=== PATIENT | male | born 1990 | race Asian ===

== ENCOUNTER 2018-02-18 21:48 | Emergency (ER) | payer MEDICAID ==
[~2018-02-18] VITALS: Ht 167.6 cm; Wt 164.0 kg
[2018-02-18 21:55] VITALS: BP 141/90
== END 2018-02-18 23:22 | disposition left against medical advice (07) ==
LOC: ER 21:49
DX: R07.89 Other chest pain (principal); Z53.21 Procedure and treatment not carried out due to patient leaving prior to being seen by health care provider

== ENCOUNTER 2018-03-07 10:16 | Inpatient (IN) | payer MEDICAID ==
[~2018-03-07] VITALS: Ht 172.7 cm; Wt 86.9 kg
[2018-03-07 10:44] LABS: BASOPHILS % (AUTO) 0.3 % (0-1); EOSINOPHILS # (AUTO) 0.1 X10'3 (0-0.9); EOSINOPHILS % (AUTO) 1.6 % (0-6); HEMATOCRIT 48.4 % (42.0-52.0); HEMOGLOBIN 16.5 g/dl (14.0-17.9); LYMPHOCYTES # (AUTO) 3.7 X10'3 (1.1-4.8); MEAN CORPUSCULAR HEMOGLOBIN 29.2 PG (27.0-31.0); MONOCYTES # (AUTO) 0.5 X10'3 (0-0.9); MONOCYTES % (AUTO) 5.9 % (2-12); NEUTROPHILS # (AUTO) 4.5 X10'3 (1.8-7.7); NEUTROPHILS % (AUTO) 50.2 % (42-75); PLATELET COUNT 288 X10'3 (140-440); RED BLOOD COUNT 5.63 X10'6 (4.70-6.10); RED CELL DISTRIBUTION WIDTH 13.1 % (11.5-14.5); WHITE BLOOD COUNT 8.9 X10'3 (4.5-11.0)
[2018-03-07 11:05] LABS: ALANINE AMINOTRANSFERASE 140 U/L (12-78); ALBUMIN 4.7 G/DL (3.4-5.0); ALBUMIN/GLOBULIN RATIO 1.2 (1.1-1.5); ALKALINE PHOSPHATASE 60 IU/L (46-116); ANION GAP 18 (8-16); ASPARTATE AMINO TRANSFERASE 43 U/L (10-37); BILIRUBIN,TOTAL 0.7 MG/DL (0.1-1.0); BLOOD UREA NITROGEN 11 MG/DL (7-18); BUN/CREATININE RATIO 12.8 (5.4-32.0); CALCIUM 9.7 MG/DL (8.5-10.1); CHLORIDE 101 MMOL/L (99-107); CREATININE 0.86 MG/DL (0.60-1.10); GLUCOSE 133 MG/DL (70-104); SODIUM 139 MMOL/L (135-145); TOTAL PROTEIN 8.6 G/DL (6.4-8.2); eGFR > 90 ML/MIN
[2018-03-07 11:10] LABS: PARTIAL THROMBOPLASTIN TIME 27 SECONDS (22-32); POTASSIUM 2.8 MMOL/L (3.5-5.1); PROTHROMBIN TIME 10.1 SECONDS (9.0-12.0)
[2018-03-07] MEDS ORDERED: LORazepam 2 mg/ml vial IV ONE (11:10)
[2018-03-07] MEDS ORDERED: normal saline 1000ML IV soln IVB ONE (11:10)
[2018-03-07] MEDS ORDERED: ondansetron/PF 4mg/2ml inj IV ONE (11:15)
[2018-03-07] MEDS ORDERED: potassium Cl 20 mEq SR tablet PO ONE (11:15)
[2018-03-07] MEDS: potassium 10mEq/100ml NS w/LIDOcaine (10mg/bag) IV SCH ×2 (11:44→12:48)
[2018-03-07] MEDS ORDERED: aspirin 81mg tab.chew PO ONE (11:50)
[2018-03-07 13:35] LABS: URINE AMPHETAMINE SCREEN NEGATIVE (Neg); URINE BARBITUATE SCREEN NEGATIVE (Neg); URINE BENZODIAZEPINES SCREEN NEGATIVE (Neg); URINE CANNABINOID SCREEN NEGATIVE (Neg); URINE COCAINE SCREEN NEGATIVE (Neg); URINE METHADONE SCREEN NEGATIVE (Neg); URINE OPIATE SCREEN NEGATIVE (Neg); URINE PHENCYCLIDINE SCREEN NEGATIVE (Neg)
[2018-03-07 14:36] LABS: POTASSIUM 4.2 MMOL/L (3.5-5.1)
[2018-03-07] MEDS ORDERED: NO HOME MEDS (15:16)
[2018-03-07] MEDS ORDERED: FISH12002 PO (15:50)
[2018-03-07 16:01] LABS: D-DIMER < 0.19 MG/L FEU (0-0.50)
[2018-03-07] MEDS ORDERED: nitroGLYCERIN 0.4mg SUBLingual tab SL PRN (16:30)
[2018-03-07] MEDS ORDERED: aminophylline 250mg/10ml inj. IV PRN (16:30)
[2018-03-07] MEDS ORDERED: acetaminophen 325mg tablet PO PRN ×2 (16:30)
[2018-03-07] MEDS ORDERED: ondansetron/PF 4mg/2ml inj IV PRN (16:30)
[2018-03-07] MEDS ORDERED: magnesium 1gm/100ml D5W IVPB 100 ML IV PRN (16:30)
[2018-03-07] MEDS ORDERED: HYDROcodone/acetaminophen 5mg/325mg tablet PO PRN (16:30)
[2018-03-07] MEDS ORDERED: metoprolol tartrate 1mg/ml inj IV PRN (16:30)
[2018-03-07] MEDS ORDERED: regadenoson 0.4mg/5ml syringe IV ONE (16:30)
[2018-03-07] MEDS ORDERED: diphenhydrAMINE 25mg capsule PO PRN (16:30)
[2018-03-07] MEDS ORDERED: magnesium Cl slow-release 64mg tablet PO PRN (16:30)
[2018-03-07] MEDS ORDERED: mag hydrox/Alum hydrox/simeth 30ml oral suspension PO PRN (16:30)
[2018-03-07] MEDS ORDERED: magnesium 4gm in 100ml NS 100 ML IV PRN (16:30)
[2018-03-07] MEDS ORDERED: magnesium hydroxide 30ml (MOM) UD suspension PO PRN (16:30)
[2018-03-07] MEDS ORDERED: potassium Cl 40MEQ/NS 500ml 500 ML IV PRN ×2 (16:30)
[2018-03-07] MEDS ORDERED: potassium Cl 20 mEq SR tablet PO PRN ×2 (16:30)
[2018-03-07] MEDS ORDERED: morphine 2 MG/ML inj. syringe IV PRN (16:30)
[2018-03-07] MEDS: normal saline 1000ml 1,000 ML IV SCH (17:01)
[2018-03-07] MEDS: enoxaparin 40mg/0.4ml syringe SUBCUT SCH (17:03)
[2018-03-07] MEDS ORDERED: iohexol 350MG/ML 100ml bottle IV ONE (17:05)
[2018-03-07 17:08] LABS: HEMOGLOBIN A1C 5.6 % (4.5-6.2)
[2018-03-07 18:53] LABS: MAGNESIUM 2.1 MG/DL (1.5-2.4)
[2018-03-07] MEDS: K and/or MAG REPLACEMENT MC SCH (20:10)
[2018-03-07 20:15] VITALS: BP 128/80
[2018-03-07] MEDS ORDERED: temazepam 15mg capsule PO PRN (21:00)
[2018-03-07 23:00] VITALS: BP 113/69
[2018-03-08] VITALS (12 sets, daily range): BP systolic 79–137; BP diastolic 34–88
[2018-03-08] MEDS: normal saline 1000ml 1,000 ML IV SCH ×2 (02:30→12:30)
[2018-03-08 05:35] LABS: BASOPHILS % (AUTO) 0.4 % (0-1); EOSINOPHILS # (AUTO) 0.2 X10'3 (0-0.9); HEMATOCRIT 42.2 % (42.0-52.0); HEMOGLOBIN 14.4 g/dl (14.0-17.9); LYMPHOCYTES # (AUTO) 2.9 X10'3 (1.1-4.8); LYMPHOCYTES % (AUTO) 37.1 % (21-51); MEAN CORPUSCULAR HEMOGLOBIN 29.1 PG (27.0-31.0); MEAN CORPUSCULAR HGB CONC 34.2 % (33.0-36.5); MEAN CORPUSCULAR VOLUME 85.1 FL (78-98); MEAN PLATELET VOLUME 8.2 FL (7.4-10.4); MONOCYTES # (AUTO) 0.5 X10'3 (0-0.9); NEUTROPHILS # (AUTO) 4.2 X10'3 (1.8-7.7); NEUTROPHILS % (AUTO) 53.5 % (42-75); PLATELET COUNT 229 X10'3 (140-440); RED BLOOD COUNT 4.96 X10'6 (4.70-6.10); RED CELL DISTRIBUTION WIDTH 13.3 % (11.5-14.5); WHITE BLOOD COUNT 7.9 X10'3 (4.5-11.0)
[2018-03-08 05:54] LABS: ALANINE AMINOTRANSFERASE 113 U/L (12-78); ALBUMIN 3.6 G/DL (3.4-5.0); ALBUMIN/GLOBULIN RATIO 1.1 (1.1-1.5); ALKALINE PHOSPHATASE 41 IU/L (46-116); ANION GAP 11 (8-16); ASPARTATE AMINO TRANSFERASE 32 U/L (10-37); BILIRUBIN,TOTAL 0.5 MG/DL (0.1-1.0); BLOOD UREA NITROGEN 12 MG/DL (7-18); BUN/CREATININE RATIO 16.7 (5.4-32.0); CALCIUM 8.6 MG/DL (8.5-10.1); CHLORIDE 107 MMOL/L (99-107); CHOL/HDL RATIO 4.9 (0.00-4.99); CHOLESTEROL 177 MG/DL (0-200); CREATININE 0.72 MG/DL (0.60-1.10); GLUCOSE 112 MG/DL (70-104); HDL CHOLESTEROL 36 MG/DL (35-60); LDL CHOLESTEROL 134 MG/DL (50-100); MAGNESIUM 2.2 MG/DL (1.5-2.4); PHOSPHORUS 4.7 MG/DL (2.3-4.5); POTASSIUM 3.8 MMOL/L (3.5-5.1); SODIUM 141 MMOL/L (135-145); TOTAL PROTEIN 6.8 G/DL (6.4-8.2); TRIGLYCERIDES 60 MG/DL (20-135); TROPONIN I 0.06 NG/ML (0.0-0.05); eGFR > 90 ML/MIN
[2018-03-08] MEDS: enoxaparin 40mg/0.4ml syringe SUBCUT SCH (07:54)
[2018-03-08] MEDS ORDERED: OMEGA-3/DHA/EPA/FISH OIL 1 EACH CAPSULE.DR PO SCH (08:00)
[2018-03-08] MEDS: K and/or MAG REPLACEMENT MC SCH (08:00)
[2018-03-08] MEDS ORDERED: aminophylline inj. 10 ML IV ONE (09:47)
[2018-03-08] MEDS ORDERED: regadenoson 0.4mg/5ml syringe IV ONE (09:47)
[2018-03-08 12:22] LABS: HIV ANTIBODY 1&2 RAPID NON-REACTIVE (Neg)
[2018-03-09 08:31] LABS: HBSAG SCREEN Negative (Negative); HEP A AB, IGM Negative (Negative); HEP B CORE AB, IGM Negative (Negative); HEPATITIS C ANTIBODY <0.1 s/co ratio (0.0-0.9)
== END 2018-03-08 14:25 | disposition home or self-care (01) | DRG 190 ==
LOC: ER 10:17 → ED HOLD 16:30 → CMPBEDREQ 19:47 → PCU 3S 20:10
PROVIDERS: ADMIT Family Medicine; ATTEND Family Medicine
PROC: B32T1ZZ Computerized Tomography (CT Scan) of Left Pulmonary Artery using Low Osmolar Contrast (ICD-10-PCS; principal; 2018-03-07)
PROC: B3201ZZ Computerized Tomography (CT Scan) of Thoracic Aorta using Low Osmolar Contrast (ICD-10-PCS; 2018-03-07)
PROC: B32S1ZZ Computerized Tomography (CT Scan) of Right Pulmonary Artery using Low Osmolar Contrast (ICD-10-PCS; 2018-03-07)
PROC: 4A02XM4 Measurement of Cardiac Total Activity, External Approach (ICD-10-PCS; 2018-03-08)
PROC: 3E033HZ Introduction of Radioactive Substance into Peripheral Vein, Percutaneous Approach (ICD-10-PCS; 2018-03-08)
DX: I21.A1 Myocardial infarction type 2 (principal); E87.2 Acidosis; E86.0 Dehydration; R00.0 Tachycardia, unspecified; E87.6 Hypokalemia; F15.90 Other stimulant use, unspecified, uncomplicated; R74.0 Nonspecific elevation of levels of transaminase and lactic acid dehydrogenase [LDH]; F41.9 Anxiety disorder, unspecified; Z80.3 Family history of malignant neoplasm of breast
CPT/HCPCS: 36415; 71045; 71275; 78452; 80053; 80061; 80305; 83036; 83735; 84100; 84132; 84443; 84484; 85025; 85379; 85610; 85730; 86703; 86705; 86706; 86709; 86803; 87070; 87340; 93005; 93017; 93306; 96361; 96374; 96375; 99285; A9500; G0378; J0280; J1650; J2060; J2405; J3480; J7030; Q9967

== ENCOUNTER 2018-03-17 12:57 | Emergency (ER) | payer MEDICAID ==
[~2018-03-17] VITALS: Ht 172.7 cm; Wt 87.0 kg
[~2018-03-17 12:57] MED LIST: FISH12002 PO
[2018-03-17] MEDS ORDERED: aspirin 325mg tablet PO ONE (13:15)
[2018-03-17] MEDS ORDERED: LORazepam 1 MG tablet PO ONE (13:15)
[2018-03-17 13:17] LABS: BASOPHILS % (AUTO) 0.1 % (0-1); EOSINOPHILS # (AUTO) 0.3 X10'3 (0-0.9); EOSINOPHILS % (AUTO) 2.3 % (0-6); HEMATOCRIT 44.9 % (42.0-52.0); HEMOGLOBIN 15.4 g/dl (14.0-17.9); LYMPHOCYTES # (AUTO) 3.7 X10'3 (1.1-4.8); MEAN CORPUSCULAR HEMOGLOBIN 29.1 PG (27.0-31.0); MEAN CORPUSCULAR HGB CONC 34.3 % (33.0-36.5); MEAN CORPUSCULAR VOLUME 84.9 FL (78-98); MEAN PLATELET VOLUME 7.7 FL (7.4-10.4); MONOCYTES # (AUTO) 0.7 X10'3 (0-0.9); MONOCYTES % (AUTO) 5.7 % (2-12); NEUTROPHILS # (AUTO) 6.9 X10'3 (1.8-7.7); NEUTROPHILS % (AUTO) 59.9 % (42-75); PLATELET COUNT 287 X10'3 (140-440); RED BLOOD COUNT 5.28 X10'6 (4.70-6.10); RED CELL DISTRIBUTION WIDTH 13.1 % (11.5-14.5); WHITE BLOOD COUNT 11.5 X10'3 (4.5-11.0)
[2018-03-17 13:37] LABS: PARTIAL THROMBOPLASTIN TIME 28 SECONDS (22-32); PROTHROMBIN TIME 10.1 SECONDS (9.0-12.0)
[2018-03-17 13:46] LABS: ALANINE AMINOTRANSFERASE 137 U/L (12-78); ALBUMIN 4.3 G/DL (3.4-5.0); ALBUMIN/GLOBULIN RATIO 1.2 (1.1-1.5); ALKALINE PHOSPHATASE 60 IU/L (46-116); ANION GAP 16 (8-16); ASPARTATE AMINO TRANSFERASE 34 U/L (10-37); BILIRUBIN,TOTAL 0.5 MG/DL (0.1-1.0); BLOOD UREA NITROGEN 13 MG/DL (7-18); CALCIUM 9.2 MG/DL (8.5-10.1); CHLORIDE 101 MMOL/L (99-107); CREATININE 0.93 MG/DL (0.60-1.10); SODIUM 138 MMOL/L (135-145); TOTAL CARBON DIOXIDE 21.5 MMOL/L (24-32); eGFR > 90 ML/MIN
[2018-03-17 13:48] LABS: GLUCOSE 146 MG/DL (70-104); POTASSIUM 3.2 MMOL/L (3.5-5.1)
[2018-03-17] MEDS ORDERED: potassium Cl 20 mEq SR tablet PO STA (13:57)
[2018-03-17] MEDS ORDERED: ondansetron 4mg rapidly disintigrating tab PO ONE (14:00)
[2018-03-17 16:15] VITALS: BP 120/70
== END 2018-03-17 16:17 | disposition home or self-care (01) ==
LOC: ER 12:58
DX: R00.2 Palpitations (principal); R06.02 Shortness of breath; I25.2 Old myocardial infarction; Z79.899 Other long term (current) drug therapy
CPT/HCPCS: 36415; 71045; 80053; 84484; 85025; 85610; 85730; 93005; 99284

== ENCOUNTER 2018-08-16 20:10 | Emergency (ER) | payer MEDICAID ==
[~2018-08-16] VITALS: Ht 172.7 cm; Wt 81.8 kg
[~2018-08-16 20:10] MED LIST changes: -FISH12002 PO; +METO25TA6 PO
[2018-08-16] MEDS ORDERED: aspirin 81mg tab.chew PO ONE (21:25)
[2018-08-16 21:34] LABS: BASOPHILS # (AUTO) 0.1 X10'3 (0-0.2); BASOPHILS % (AUTO) 1.1 % (0-1); EOSINOPHILS # (AUTO) 0.3 X10'3 (0-0.9); EOSINOPHILS % (AUTO) 2.9 % (0-6); HEMATOCRIT 44.2 % (42.0-52.0); HEMOGLOBIN 14.9 g/dl (14.0-17.9); LYMPHOCYTES # (AUTO) 3.5 X10'3 (1.1-4.8); LYMPHOCYTES % (AUTO) 34.4 % (21-51); MEAN CORPUSCULAR HEMOGLOBIN 28.5 PG (27.0-31.0); MEAN CORPUSCULAR HGB CONC 33.7 g/dL (33.0-36.5); MEAN CORPUSCULAR VOLUME 84.3 FL (78-98); MEAN PLATELET VOLUME 7.8 FL (7.4-10.4); MONOCYTES # (AUTO) 0.6 X10'3 (0-0.9); MONOCYTES % (AUTO) 6.3 % (2-12); NEUTROPHILS # (AUTO) 5.6 X10'3 (1.8-7.7); NEUTROPHILS % (AUTO) 55.3 % (42-75); PLATELET COUNT 244 X10'3 (140-440); RED BLOOD COUNT 5.24 X10'6 (4.70-6.10); RED CELL DISTRIBUTION WIDTH 13.1 % (11.5-14.5); WHITE BLOOD COUNT 10.2 X10'3 (4.5-11.0)
[2018-08-16 21:49] LABS: ALANINE AMINOTRANSFERASE 56 U/L (12-78); ALBUMIN 4.3 G/DL (3.4-5.0); ALBUMIN/GLOBULIN RATIO 1.3 (1.1-1.5); ALKALINE PHOSPHATASE 52 IU/L (46-116); ANION GAP 14 (8-16); ASPARTATE AMINO TRANSFERASE 18 U/L (10-37); BILIRUBIN,TOTAL 0.4 MG/DL (0.1-1.0); BLOOD UREA NITROGEN 15 MG/DL (7-18); BUN/CREATININE RATIO 19.2 (5.4-32.0); CALCIUM 9.6 MG/DL (8.5-10.1); CHLORIDE 104 MMOL/L (99-107); CREATININE 0.78 MG/DL (0.60-1.10); GLUCOSE 113 MG/DL (70-104); POTASSIUM 3.1 MMOL/L (3.5-5.1); SODIUM 140 MMOL/L (135-145); TOTAL CARBON DIOXIDE 22.1 MMOL/L (24-32); TOTAL PROTEIN 7.7 G/DL (6.4-8.2); eGFR > 90 ML/MIN
[2018-08-16] MEDS ORDERED: potassium Cl 20 mEq SR tablet PO STA (21:58)
[2018-08-16 23:39] VITALS: BP 118/71
== END 2018-08-17 00:24 | disposition home or self-care (01) ==
LOC: ER 20:11
DX: R00.2 Palpitations (principal); I25.10 Atherosclerotic heart disease of native coronary artery without angina pectoris; I25.2 Old myocardial infarction
CPT/HCPCS: 36415; 71045; 80053; 83735; 84484; 85025; 93005; 99284

== ENCOUNTER 2018-08-29 10:12 | Emergency (ER) | payer MEDICAID ==
[~2018-08-29] VITALS: Ht 167.6 cm; Wt 83.7 kg
[2018-08-29] MEDS ORDERED: LIDOcaine 1% w/epiNEPHrine 1:200,000 30ml vial IM ONE (12:10)
--- NOTE | 2018-08-29 12:51 | NUR ---
MD Duggan at bedside for lumbar puncture
[2018-08-29 14:01] LABS: APPEARANCE,CSF SL HAZY; CSF SUPERNATANT COLOR COLORLESS
[2018-08-29 14:02] LABS: CSF VOLUME 4 ML; TUBE# COUNTED 3
[2018-08-29 14:03] LABS: CSF RBC 570 /CU MM (0)
[2018-08-29 14:08] LABS: CSF WBC CT 3 /CU MM (0-5)
[2018-08-29 15:04] VITALS: BP 120/66
== END 2018-08-29 15:06 | disposition home or self-care (01) ==
LOC: ER 10:12
DX: R51 Headache (principal); R42 Dizziness and giddiness; I25.10 Atherosclerotic heart disease of native coronary artery without angina pectoris; I25.2 Old myocardial infarction; Z79.899 Other long term (current) drug therapy
CPT/HCPCS: 62270; 89051; 99284